=== PATIENT | female | born 1955 | race Caucasian/White ===

== ENCOUNTER → 2016-06-13 | Outpatient (CLI) | payer OTHER ==
[~2016-06-13] MED LIST: BNT10 PO; CLC/300 PO; DULO60CA44 PO; PRLSR20 PO; SPIR25TA PO
--- NOTE | 2016-06-13 16:27 | MAMMOGRAPHY REPORT ---
BILATERAL DIGITAL SCREENING MAMMOGRAM TOMOSYNTHESIS WITH CAD: 06/13/2016 CLINICAL HISTORY: Routine screening. Patient has no complaints. TECHNIQUE: Breast tomosynthesis in addition to standard 2D mammography was performed. Current study was also evaluated with a Computer Aided Detection (CAD) system. COMPARISON: Comparison is made to exams dated: 05/23/2015 mammogram, 05/17/2013 mammogram, 05/22/20 14 mammogram, 05/14/2012 mammogram, 05/13/2011 mammogram, and 05/09/2010 mammogram - [facility]. BREAST COMPOSITION: There are scattered areas of fibroglandular density in both breasts. FINDINGS: The previously seen bilateral silicone implants are no longer evident. There is a newly visualized small 3 mm cluster of calcifications in the right superior posterior breast overlying the pectoralis muscle, for which spot magnification views and right X CCL views are recommended for fur ther evaluation. Additionally, there is a partially visualized asymmetry seen within the left poste rior breast on the MLO view, which could represent residual silicone and/or postsurgical changes fro m implant removal, however, spot compression tomosynthesis views and possible breast ultrasound are recommended for further evaluation. The remainder of both breasts are stable compared to prior exams, without suspicious masses, calcifi cations, or areas of architectural distortion noted. Benign-appearing 2.3 cm mass in the left upper outer quadrant and smaller benign-appearing 6 mm mass at approximately 3:00 are stable compared to prior exams. IMPRESSION: ACR BI-RADS CATEGORY 0: INCOMPLETE EVALUATION: NEED ADDITIONAL IMAGING EVALUATION Right breast calcifications and left breast asymmetry, for which additional imaging evaluation is re commended. The patient will be called to schedule an appointment. Approximately 10% of breast cancers are not detected with mammography. A negative mammographic repor t should not delay biopsy if a clinically suggestive mass is present. Marley Ramon M.D. ah/:06/13/2016 15:44:00 Corporate Health Consultant: Makayla BARRETT)(M), [facility] letter sent: Addl Imaging 0 BI-RADS Code: ACR BI-RADS Category 0: Incomplete Evaluation: Need Additional Imaging Evaluation
== END | disposition home or self-care (01) ==
LOC: C.MAMM 09:44
PROVIDERS: ATTEND Obstetrics & Gynecology
DX: Z12.31 Encounter for screening mammogram for malignant neoplasm of breast (principal); R92.1 Mammographic calcification found on diagnostic imaging of breast; N64.89 Other specified disorders of breast

== ENCOUNTER → 2016-06-19 | Outpatient (CLI) | payer OTHER ==
--- NOTE | 2016-06-19 14:52 | MAMMOGRAPHY REPORT ---
BILATERAL DIGITAL DIAGNOSTIC MAMMOGRAM TOMOSYNTHESIS AND TARGETED LEFT ULTRASOUND: 06/19/2016 CLINICAL HISTORY: Callback from screening mammogram for right breast calcifications and left breast asymmetry. Interval removal of bilateral breast implants. TECHNIQUE: Breast tomosynthesis in addition to standard 2D mammography was performed. Right spot m agnification CC and ML views, right X CCL view, and spot compression left MLO 2-D and tomosynthesis images were obtained. COMPARISON: Comparison is made to exams dated: 06/13/2016 mammogram, 05/23/2015 mammogram, 3 mammogram, 06/11/2015 breast MRI, 05/22/2014 mammogram, and 05/14/2012 mammogram - [facility]. BREAST COMPOSITION: There are scattered areas of fibroglandular density in both breasts. FINDINGS: The previously described partially visualized asymmetry seen within the left posterior br east on the MLO view is less prominent on the spot compression views, and may represent postsurgical changes from implant removal and/or less likely residual silicone. A small amount of extra capsula r silicone was seen in this region on the April 2015 exam. Spot magnification views of the right breast demonstrate a small 4 mm cluster of punctate calcificat ions in the right superior posterior breast overlying the pectoralis muscle, seen on the ML view onl y and not seen on the cc view. This was not clearly seen on prior exams, although the calcification s could have been obscured by the previously seen implants which have been removed. The calcificati ons are probably benign, and recommend short interval follow-up in 6 months. The calcifications are not amenable to stereotactic biopsy due to the far posterior location. Targeted ultrasound was performed of the left breast at 3:00, 9:00, and subareolar region, in the re gion of the asymmetry seen on one view only. No suspicious masses or other suspicious sonographic a bnormalities are evident. No focal echogenic mass is seen to suggest residual silicone. Incidental ly noted in the left breast at 3:00, 3 cm from the nipple, is an oval anechoic benign simple cyst wh ich measures 4 x 6 mm. IMPRESSION: ACR-BI-RADS CATEGORY 3: PROBABLY BENIGN, TARGETED ULTRASOUND ACR-BI-RADS CATEGORY 3: DC OBABLY BENIGN 1. Small 4 mm cluster of punctate calcifications in the right superior posterior breast is probably benign. Recommend follow-up diagnostic mammograms of the right breast in 6 months to confirm federico brown. 2. Asymmetry seen within the left posterior breast is less prominent on the additional views, witho ut corresponding sonographic abnormality evident. The asymmetry is benign and likely represents pos tsurgical changes due to implant removal and/or less likely a small amount of residual silicone. The patient has been verbally notified of the results. Approximately 10% of breast cancers are not detected with mammography. A negative mammographic repor t should not delay biopsy if a clinically suggestive mass is present. Marley Ramon M.D. ah/:06/19/2016 10:18:12 Press Cleaner: Nelly Green, [facility] letter sent: Follow Up Recommended 3 BI-RADS Code: ACR-BI-RADS Category 3: Probably Benign Ultrasound BI-RADS: ACR-BI-RADS Category 3: P robably Benign
== END | disposition home or self-care (01) ==
LOC: C.MAMM 08:48
PROVIDERS: ATTEND Obstetrics & Gynecology
DX: R92.1 Mammographic calcification found on diagnostic imaging of breast (principal); N64.89 Other specified disorders of breast

== ENCOUNTER → 2016-12-17 | Outpatient (CLI) | payer OTHER ==
--- NOTE | 2016-12-17 12:45 | MAMMOGRAPHY REPORT ---
BILATERAL DIGITAL DIAGNOSTIC MAMMOGRAM TOMOSYNTHESIS WITH CAD: 12/17/2016 CLINICAL HISTORY: 61-year-old woman presents for follow-up in both breasts; for an asymmetry in the i nferior posterior left breast on the MLO view, and also a 4 mm cluster of microcalcifications in the superior posterior right breast, only seen on the MLO view. Patient has a history of prior breast au gmentation and subsequent implant removal. TECHNIQUE: Right CC, MLO, left MLO 2-D and tomosynthesis images, spot magnification right CC and ML v iews were obtained. Current study was also evaluated with a Computer Aided Detection (CAD) system. COMPARISON: Comparison is made to exams dated: 06/19/2016 ultrasound, 06/19/2016 mammogram, 06/13/2016 mammogram, 05/23/2015 mammogram, 05/22/2014 mammogram, and 05/17/2013 mammogram - [facility]. BREAST COMPOSITION: There are scattered areas of fibroglandular density in both breasts. FINDINGS: A 2.3 cm ovoid asymmetry in the superior middle one third of the left breast on the MLO vie w and a smaller, 4 mm nodular asymmetry in the inferior, middle one third of the left breast on the M LO view appear generally stable comparing to prior available mammograms, but likely decreased in size comparing to the most remote 2006 mammogram. The asymmetry in the inferior, far posterior left christiano st on the MLO view persists, but there is no definite evidence of a mass on the corresponding tomosyn thesis images. The appearance is very similar to the 06/13/2016 exam, and this could represent guillermina l overlapping tissue or possibly residual silicone. The right parenchymal pattern is similar to the prior mammogram. Again seen is a 4 mm cluster of pun ctate microcalcifications in the superior far posterior right breast, only seen on the spot magnifica tion ML view. These microcalcifications have not significantly increased in number compared to the p rior spot magnification views and are most likely benign. However, another short interval follow-up diagnostic mammogram including spot magnification views is recommended to ensure longer stability. N o other suspicious mass, architectural distortion or other cluster of microcalcifications are seen in the right breast. IMPRESSION: ACR-BI-RADS CATEGORY 3: PROBABLY BENIGN Stable bilateral mammograms including a benign appearing 4 mm cluster of punctate microcalcifications in the superior posterior right breast, and an asymmetry in the inferior posterior left breast. Ano ther six-month follow-up bilateral diagnostic mammogram including right spot magnification views and possible ultrasound is recommend to ensure longer stability. These results and recommendations were discussed with the patient at the time of the exam. Approximately 10% of breast cancers are not detected with mammography. A negative mammographic report should not delay biopsy if a clinically suggestive mass is present. Valencia Fuentes M.D. ay/:12/17/2016 11:38:03 Parts Washer: Ephraim BARRETT)(Jama), [facility] letter sent: Follow Up Recommended 3 BI-RADS Code: ACR-BI-RADS Category 3: Probably Benign
== END | disposition home or self-care (01) ==
LOC: C.MAMM 10:53
PROVIDERS: ATTEND Obstetrics & Gynecology
DX: R92.2 Inconclusive mammogram (principal); R92.0 Mammographic microcalcification found on diagnostic imaging of breast

== ENCOUNTER → 2017-01-19 | Outpatient (CLI) | payer OTHER ==
[2017-01-19 09:38] LABS: BASO % 0.8 %; BASO ABS # 0.04 K/uL (0-0.2); COMPLETE YES; EOS % 5.2 %; HEMATOCRIT 40.4 % (37-47); IG% 0.2 %; LYMPH % 46.8 %; LYMPH ABS # 2.41 K/uL (1.2-3.4); MEAN CORPUSCULAR HEMOGLOBIN 31.4 pg (25-34); MEAN CORPUSCULAR HGB CONC 33.4 g/dl (32-36); MEAN PLATELET VOLUME 11.1 fL (7.4-10.4); MONO % 7.8 %; NEUT % 39.2 %; PLATELET COUNT 250 K/uL (130-400); WHITE BLOOD COUNT 5.15 K/uL (4.8-10.8)
[2017-01-19 09:58] LABS: ALT/SGPT 20 U/L (12-78); BLOOD UREA NITROGEN 18 mg/dl (7-18); BUN/CREATININE RATIO 17.8 (10-20); CALCIUM 9.1 mg/dl (8.5-10.1); CARBON DIOXIDE 30 mmol/L (21-32); CHLORIDE 105 mmol/L (98-107); CHOLESTEROL 169 mg/dl (0-200); GLUCOSE 86 mg/dl (70-99); MAGNESIUM 2.2 mg/dl (1.8-2.4); POTASSIUM 4.2 mmol/L (3.5-5.1); SODIUM 141 mmol/L (136-145)
[2017-01-19 10:07] LABS: ALB/GLOB RATIO 1.1 (0.9-2); ALKALINE PHOSPHATASE 82 U/L (45-117); AST/SGOT 18 U/L (15-37); CHOLESTEROL/HDL RATIO 2.7; FERRITIN 16.6 ng/ml (8.0-388.0); HDL CHOLESTEROL 62 mg/dl; LDL CHOLESTEROL CALCULATED 94 mg/dl; TRIGLYCERIDES 67 mg/dl (0-150); VERY LOW DENSITY LIPOPROT CALC 13 mg/dl
== END | disposition home or self-care (01) ==
LOC: C.LAB1850 08:14
PROVIDERS: ATTEND Nurse Practitioner Family
DX: Z11.59 Encounter for screening for other viral diseases (principal); I10 Essential (primary) hypertension; D50.9 Iron deficiency anemia, unspecified; E78.5 Hyperlipidemia, unspecified

== ENCOUNTER → 2017-04-30 | Outpatient (CLI) | payer OTHER ==
[~2017-04-30] VITALS: Ht 174 cm; Wt 77.2 kg
[2017-04-30 13:28] VITALS: BP 130/83; PULSE 81; Ht 174 cm; Wt 77.2 kg
== END | disposition home or self-care (01) ==
LOC: C.NEUR 13:10
PROVIDERS: ATTEND Internal Medicine Pulmonary Disease
DX: G47.00 Insomnia, unspecified (principal); F32.9 Major depressive disorder, single episode, unspecified; K21.9 Gastro-esophageal reflux disease without esophagitis; G47.19 Other hypersomnia; D50.9 Iron deficiency anemia, unspecified

== ENCOUNTER → 2017-06-23 | Outpatient (CLI) | payer OTHER ==
--- NOTE | 2017-06-23 14:41 | MAMMOGRAPHY REPORT ---
BILATERAL DIGITAL DIAGNOSTIC MAMMOGRAM TOMOSYNTHESIS WITH CAD: 06/23/2017 CLINICAL HISTORY: Six-month follow-up of right breast calcifications. The patient reports no current complaints. TECHNIQUE: Breast tomosynthesis in addition to standard 2D mammography was performed. Current study was also evaluated with a Computer Aided Detection (CAD) system. Bilateral CC and MLO 2-D and tomosy nthesis images and spot magnification right ML views were obtained. COMPARISON: Comparison is made to exams dated: 12/17/2016 mammogram, 06/19/2016 mammogram, 06/13/2016 m ammogram, 05/23/2015 mammogram, 05/17/2013 mammogram, and 05/22/2014 mammogram - [facility]. BREAST COMPOSITION: There are scattered areas of fibroglandular density in both breasts. FINDINGS: The previously described small 2 mm cluster of punctate calcifications in the right superi or posterior breast, seen on the MLO and ML views only, is stable dating back to at least the May 2016 exam and is probably benign. The remainder of both breasts are stable compared to prior exams, without suspicious masses, calcifications, or areas of architectural distortion noted. 2.4 cm asymm etry within the left upper outer quadrant is stable compared to multiple prior exams. Left inferior posterior breast asymmetry is stable to less prominent compared to the May 2016 exam and is benig n and may represent normal fibroglandular tissue versus changes related to prior implant removal. IMPRESSION: ACR-BI-RADS CATEGORY 3: PROBABLY BENIGN Small 2 mm cluster of punctate calcifications in the right superior posterior breast is stable dating back to the May 2016 exam and is probably benign. Recommend bilateral diagnostic tomosynthesis mammograms in 12 months to confirm 2 years of stability of the right breast calcifications and for ro utine mammography of the left breast. The patient has been verbally notified of the results. Approximately 10% of breast cancers are not detected with mammography. A negative mammographic report should not delay biopsy if a clinically suggestive mass is present. Marley Ramon M.D. ah/:06/23/2017 10:07:47 Adult Crossing Guard: Nelly SHIN(Theodore)(M), [facility] letter sent: Follow Up Recommended 3 BI-RADS Code: ACR-BI-RADS Category 3: Probably Benign
== END | disposition home or self-care (01) ==
LOC: C.MAMM 09:36
PROVIDERS: ATTEND Obstetrics & Gynecology
DX: R92.1 Mammographic calcification found on diagnostic imaging of breast (principal)

== ENCOUNTER → 2017-08-04 | Day surgery (SDC) | payer OTHER ==
[2017-07-09 10:50] VITALS: Ht 172.7 cm; Wt 77.3 kg
[~2017-08-04] VITALS: Ht 172.7 cm; Wt 77.3 kg
[~2017-08-04] MED LIST changes: +500ML BSS 0.3ML EPI 1:1000PF IRRIG ONE; +ACETAMINOPHEN 325 MG TAB PO PRN; +AMVISC PLAIN 0.8ML SYRINGE INT OCU ONE; +AMVISC PLUS 0.8ML SYRINGE INT OCU ONE; +ATROPINE SULFATE 0.1 MG/ML 5ML SYR IV PRN; -BNT10 PO; +BSS FLUSH ONE; -CLC/300 PO; +CTP/1 PO; +DICY10CA55 PO; +EpHEDrine SULFATE INJ 50 MG/ML AMP IV PRN; +EpINEphrine INJ 1MG/ML AMP 1 MG/ML AMP ONE; +LACTATED RINGER'S 1000ML 500 ML IV SCH; +LIDOCAINE 3.5% OPH GEL PER APPLICATION CHARGE ONE; +LIDOCAINE HCL 1% MPF 2 ML VIAL ONE; +MIDAZOLAM HCL 1 MG/ML 2ML VIAL ONE; +MULT-1092 PO; +POVIDONE-IODINE OP SOLN 30 ML BTL ONE; +PROPARACAINE 0.5% OP SOLN PER DROP CHARGE OPR SCH; +TOBRAMYCIN/DEXAMETHASONE OPH OINT PER APPLN CHARGE ONE; +ZOLP10TA PO
[2017-08-04] MEDS: PHENYLEPHRINE HCL 2.5% OP SOLN PER DROP CHARGE OPR SCH ×2 (06:27→06:32)
[2017-08-04] MEDS: TROPICAMIDE 1% OP SOLN PER DROP CHARGE OPR SCH ×2 (06:28→06:33)
[2017-08-04] MEDS: CYCLOPENTOLATE HCL 1% OP SOLN PER DROP CHARGE OPR SCH ×2 (06:29→06:34)
[2017-08-04] MEDS: KETOROLAC 0.5% OP SOLN PER DROP CHARGE OPR SCH ×2 (06:30→06:35)
[2017-08-04] MEDS: GATIFLOXACIN OP SOLN PER DROP CHARGE OPR SCH ×2 (06:31→06:43)
--- NOTE | 2017-08-04 06:53 | History & Physical Bridge - SC ---
H&P Re-Evaluation Bridge Note: I have examined the patient, reviewed the History & Physical and in the interval since the performance of the History & Physical I have noted the following changes of clinical significance: No changes noted
--- NOTE | 2017-08-04 07:22 | [facility] Operative Report ---
Operative Report Date of Service Aug 04, 2017. Operative Report 1. PREOPERATIVE DIAGNOSIS: Cataract of the right eye. 2. POSTOPERATIVE DIAGNOSIS: Same. 3. PROCEDURE: Phacoemulsification with intraocular lens implantation of the right eye. SURGEON: Dr. Ravin Campos. ANESTHESIA: Topical Lidocaine gel, 1% Non- Preserved intracameral Lidocaine, and monitored intravenous sedation. INDICATIONS FOR THE PROCEDURE: The patient is a 61 - year-old female with a history of cataract of the right eye causing significant visual impairment. The details of the proposed procedure were explained to the patient who asked appropriate questions and following discussion of all risks, benefits and alternatives agreed to have the procedure done. Patient had corneal astigmatism and therefore elected to have a toric lens placed. 4. OPERATION AND FINDINGS: DESCRIPTION OF PROCEDURE: After informed consent was obtained, the patient was placed in an upright position and the cornea was marked at 88 degrees using the [employer] corneal marking tool. The patient was brought to the Operating Room at the [facility]. The patient was placed in a supine position and then the right eye was prepped and draped in the usual sterile fashion for intraocular surgery. A drop of topical Lidocaine gel was placed in the operative eye. A wire lid speculum was then placed in the fornices. A corneal paracentesis was then created temporally. The Non-Preserved Lidocaine was then instilled into the anterior chamber. The anterior chamber was then pressurized with viscoelastic. A 2.0 mm clear corneal incision was then created temporally. A cystotome was inserted into the anterior chamber and used to create a tear in the anterior lens capsule. This capsular tear was then used to create a small flap and the flap was dragged in a counterclockwise direction in order to create a continuous curvilinear capsulorrhexis. Hydrodissection was accomplished with balanced salt solution. Phacoemulsification of the lens nucleus was then performed in a standard [id number]-[id number]-iotnbfl technique. The phaco time was 13 seconds with an average power of 8 %. The remaining cortical material was removed using irrigation aspiration. The capsular bag was then filled with viscoelastic. A Attila [id number] +21.5 diopters lens was then loaded into the injector and injected into the capsular bag. The lens was aligned with the previously made corneal cali. The remaining viscoelastic was removed with the irrigation aspiration handpiece. The wound was hydrated and then checked and found to be watertight. The intraocular pressure was checked and found to be adequate. The wire lid speculum was removed and the patient's face was cleaned and dried. TobraDex ointment was placed in the inferior fornix. The patient was discharged to the Recovery Room having tolerated the procedure well. There were no complications. The patient will be seen tomorrow in the office for follow-up. I attest to the content of the Intraoperative Record and any orders documented therein. Any exceptions are noted below.
--- NOTE | 2017-08-04 07:23 | Discharge Instructions-SurgCtr ---
Discharge Instructions Date of Service Aug 04, 2017. Visit Reason for Visit: Cataract Right Eye Discharge Discharge Diagnosis / Problem: cataract Discharge Goals Goal(s): Improve function Activity Recommendations Activity Limitations: per Instructions/Follow-up section Anesthesia . Post Anesthesia Instructions: If you have had General Anesthesia or IV Sedation: * Do not drive today. * Resume driving when surgeon permits. * Do not make important decisions or sign legal documents today. * Call surgeon for: 1. Temperature elevations greater than 101 degrees F. 2. Uncontrollable pain. 3. Excessive bleeding. 4. Persistent nausea and vomiting. 5. Medication intolerance (nausea, vomiting or rash). * For nausea and vomiting use only clear liquids such as: tea, soda, bouillon until nausea subsides, then gradually increase diet as tolerated. * If you have any concerns or questions, call your surgeon's office. If physician is unavailable and it is an emergency, call 911 or go to the nearest emergency room. . Diet Recommendations Home Diet: resume previous diet Procedures Procedures Performed: Right Cataract Phacoemulsification With Intraocular Lens Implant; Toric Lens Pending Studies Studies pending at discharge: no Medical Emergencies . Who to Call and When: Medical Emergencies: If at any time you feel your situation is an emergency, please call 911 immediately. . Non-Emergent Contact Non-Emergency issues call your: Process Improvement Specialist . . "Provider Documentation" section prepared by Ravin Campos. .
[2017-08-04 07:24] VITALS: TEMP 36.6
--- NOTE | 2017-08-04 07:29 | Anesthesia Progress Nt - [facility] ---
Anesthesia Post Op Note Date & Time Aug 04, 2017 at 07:29 Vital Signs Pain Intensity: 0 Vital Signs Past 12 Hours Date Time Temp Pulse Resp B/P (MAP) Pulse Ox O2 Delivery O2 Flow Rate FiO2 08/04/17 07:24 36.6 74 16 132/82 (99) 94 Room Air 08/04/17 06:22 36.3 85 16 129/81 (97) 95 Room Air Notes Mental Status: alert / awake / arousable, participated in evaluation Pt Amnestic to Procedure: Yes Nausea / Vomiting: adequately controlled Pain: adequately controlled Airway Patency, RR, SpO2: stable & adequate BP & HR: stable & adequate Hydration State: stable & adequate Anesthetic Complications: no major complications apparent
[2017-08-04 07:47] VITALS: BP 143/82; PULSE 64; O2SAT 100
== END | disposition home or self-care (01) ==
LOC: X.SURG 06:07
PROVIDERS: ATTEND Ophthalmology
DX: H26.9 Unspecified cataract (principal); K21.9 Gastro-esophageal reflux disease without esophagitis; F32.9 Major depressive disorder, single episode, unspecified; E78.5 Hyperlipidemia, unspecified; D50.9 Iron deficiency anemia, unspecified; K58.9 Irritable bowel syndrome, unspecified; Z90.710 Acquired absence of both cervix and uterus; Z90.722 Acquired absence of ovaries, bilateral; Z88.0 Allergy status to penicillin; Z88.2 Allergy status to sulfonamides; Z82.49 Family history of ischemic heart disease and other diseases of the circulatory system; Z82.3 Family history of stroke

== ENCOUNTER → 2017-08-18 | Day surgery (SDC) | payer OTHER ==
[2017-08-11 08:11] VITALS: Ht 172.7 cm; Wt 77.3 kg
[~2017-08-18] VITALS: Ht 172.7 cm; Wt 77.3 kg
[~2017-08-18] MED LIST changes: -AMVISC PLAIN 0.8ML SYRINGE INT OCU ONE; +FENTANYL CITRATE INJ 50 MCG/1 ML 2 ML VIAL IV PRN; +OCUCOAT 1 ML SOLN IO ONE; +ONDANSETRON INJ 2 MG/ML 2 ML VIAL IV PRN; +PROPARACAINE 0.5% OP SOLN PER DROP CHARGE OPL SCH; -PROPARACAINE 0.5% OP SOLN PER DROP CHARGE OPR SCH
[2017-08-18] MEDS: PHENYLEPHRINE HCL 2.5% OP SOLN PER DROP CHARGE OPL SCH ×2 (07:30→07:35)
[2017-08-18] MEDS: TROPICAMIDE 1% OP SOLN PER DROP CHARGE OPL SCH ×2 (07:31→07:36)
[2017-08-18] MEDS: CYCLOPENTOLATE HCL 1% OP SOLN PER DROP CHARGE OPL SCH ×2 (07:32→07:37)
[2017-08-18] MEDS: KETOROLAC 0.5% OP SOLN PER DROP CHARGE OPL SCH ×2 (07:33→07:38)
[2017-08-18] MEDS: GATIFLOXACIN OP SOLN PER DROP CHARGE OPL SCH ×2 (07:34→07:44)
--- NOTE | 2017-08-18 08:46 | [facility] Operative Report ---
Operative Report Date of Service Aug 18, 2017. Operative Report 1. PREOPERATIVE DIAGNOSIS: Cataract of the left eye. 2. POSTOPERATIVE DIAGNOSIS: Same. 3. PROCEDURE: Phacoemulsification with intraocular lens implantation of the left eye. SURGEON: Dr. Ravin Campos. ANESTHESIA: Topical Lidocaine gel, 1% Non- Preserved intracameral Lidocaine, and monitored intravenous sedation. INDICATIONS FOR THE PROCEDURE: The patient is a 61 - year-old female with a history of cataract of the left eye causing significant visual impairment. The details of the proposed procedure were explained to the patient who asked appropriate questions and following discussion of all risks, benefits and alternatives agreed to have the procedure done. 4. OPERATION AND FINDINGS: DESCRIPTION OF PROCEDURE: After informed consent was obtained, the patient was brought to the Operating Room at the [facility]. The patient was placed in a supine position and then the left eye was prepped and draped in the usual sterile fashion for intraocular surgery. A drop of topical Lidocaine gel was placed in the operative eye. A wire lid speculum was then placed in the fornices. A corneal paracentesis was then created temporally. The Non-Preserved Lidocaine was then instilled into the anterior chamber. The anterior chamber was then pressurized with viscoelastic. A 2.0 mm clear corneal incision was then created temporally. A cystotome was inserted into the anterior chamber and used to create a tear in the anterior lens capsule. This capsular tear was then used to create a small flap and the flap was dragged in a counterclockwise direction in order to create a continuous curvilinear capsulorrhexis. Hydrodissection was accomplished with balanced salt solution. Phacoemulsification of the lens nucleus was then performed in a standard ltiwmi-yhv-matkxgy technique. The phaco time was 15 seconds with an average power of 11 %. The remaining cortical material was removed using irrigation aspiration. The capsular bag was then filled with viscoelastic. A Attila [id number] +22.0 diopters lens was then loaded into the injector and injected into the capsular bag. The remaining viscoelastic was removed with the irrigation aspiration handpiece. The wound was hydrated and then checked and found to be watertight. The intraocular pressure was checked and found to be adequate. The wire lid speculum was removed and the patient's face was cleaned and dried. TobraDex ointment was placed in the inferior fornix. The patient was discharged to the Recovery Room having tolerated the procedure well. There were no complications. The patient will be seen tomorrow in the office for follow-up. I attest to the content of the Intraoperative Record and any orders documented therein. Any exceptions are noted below.
--- NOTE | 2017-08-18 08:47 | Discharge Instructions-SurgCtr ---
Discharge Instructions Date of Service Aug 18, 2017. Visit Reason for Visit: Cataract Left Eye Discharge Discharge Diagnosis / Problem: cataract Discharge Goals Goal(s): Improve function Activity Recommendations Activity Limitations: per Instructions/Follow-up section Anesthesia . Post Anesthesia Instructions: If you have had General Anesthesia or IV Sedation: * Do not drive today. * Resume driving when surgeon permits. * Do not make important decisions or sign legal documents today. * Call surgeon for: 1. Temperature elevations greater than 101 degrees F. 2. Uncontrollable pain. 3. Excessive bleeding. 4. Persistent nausea and vomiting. 5. Medication intolerance (nausea, vomiting or rash). * For nausea and vomiting use only clear liquids such as: tea, soda, bouillon until nausea subsides, then gradually increase diet as tolerated. * If you have any concerns or questions, call your surgeon's office. If physician is unavailable and it is an emergency, call 911 or go to the nearest emergency room. . Diet Recommendations Home Diet: resume previous diet Procedures Procedures Performed: Left Eye Cataract Phacoemulsification With Intraocular Lens Implant Pending Studies Studies pending at discharge: no Medical Emergencies . Who to Call and When: Medical Emergencies: If at any time you feel your situation is an emergency, please call 911 immediately. . Non-Emergent Contact Non-Emergency issues call your: Strategic Sourcing Specialist . . "Provider Documentation" section prepared by Ravin Campos. .
[2017-08-18 08:49] VITALS: TEMP 36.7
--- NOTE | 2017-08-18 09:05 | Anesthesia Progress Nt - [facility] ---
Anesthesia Post Op Note Date & Time Aug 18, 2017 at 09:05 Vital Signs Pain Intensity: 0 Vital Signs Past 12 Hours Date Time Temp Pulse Resp B/P (MAP) Pulse Ox O2 Delivery O2 Flow Rate FiO2 08/18/17 08:49 36.7 67 16 124/79 (94) 98 Room Air 08/18/17 07:20 37 75 18 119/82 (94) 94 Room Air Notes Mental Status: alert / awake / arousable, participated in evaluation Pt Amnestic to Procedure: Yes Nausea / Vomiting: adequately controlled Pain: adequately controlled Airway Patency, RR, SpO2: stable & adequate BP & HR: stable & adequate Hydration State: stable & adequate Anesthetic Complications: no major complications apparent
[2017-08-18 09:12] VITALS: BP 128/77; PULSE 67; O2SAT 98
== END | disposition home or self-care (01) ==
LOC: X.SURG 06:54
PROVIDERS: ATTEND Ophthalmology
DX: H26.9 Unspecified cataract (principal); F32.9 Major depressive disorder, single episode, unspecified; E78.5 Hyperlipidemia, unspecified; K21.9 Gastro-esophageal reflux disease without esophagitis; I10 Essential (primary) hypertension; D50.9 Iron deficiency anemia, unspecified; Z79.899 Other long term (current) drug therapy; Z88.1 Allergy status to other antibiotic agents; Z88.8 Allergy status to other drugs, medicaments and biological substances; Z82.49 Family history of ischemic heart disease and other diseases of the circulatory system; Z82.3 Family history of stroke

== ENCOUNTER 2024-04-26 11:06 | Observation (INO) ==
[2024-04-26] MEDS: AMPICILLIN/SULBACTAM SOD 3,000 MG/100 ML BAG IV STA (11:47)
[2024-04-26 12:07] LABS: Basophils # (auto) 0.03 K/uL (0.00-0.20); Basophils % (auto) 0.4 %; Eosinophils # (auto) 0.08 K/uL (0.00-0.50); Eosinophils % (auto) 1.1 %; Hematocrit (blood only) 39.8 % (37.0-47.0); Hemoglobin 13.3 g/dl (12.0-16.0); Immature Granulocytes # (auto) 0.02 K/uL (0.01-0.20); Immature Granulocytes % (auto) 0.3 %; Lymphocytes # (auto) 1.82 K/uL (1.20-3.40); Lymphocytes % (auto) 24.4 %; Mean Corpuscular Hemoglobin 32.1 pg (25.0-34.0); Mean Corpuscular Hgb Conc 33.4 g/dL (32.0-36.0); Mean Corpuscular Volume 96.1 fL (80.0-100.0); Mean Platelet Volume 10.6 fL (9.4-12.4); Monocytes % (auto) 6.7 %; Neutrophils # (auto) 5.02 K/uL (1.40-6.50); Neutrophils % (auto) 67.1 %; Platelet Count 233 K/uL (130-400); RDW Coefficient of Variation 13.1 % (11.5-14.5); RDW Standard Deviation 46.2 fL (36.4-46.3); Red Blood Count 4.14 M/uL (4.20-5.40); White Blood Count 7.47 K/ul (4.8-10.8)
[2024-04-26 12:37] LABS: Alanine Aminotransferase 16 U/L (7-52); Albumin Globulin Ratio 1.6 (0.9-2); Albumin Level 4.5 gm/dl (3.4-5.0); Alkaline Phosphatase 82 U/L (34-104); BUN Creatinine Ratio 16.7 (10-20); Bilirubin,Total 0.6 mg/dl (0.2-1.0); Blood Urea Nitrogen 15 mg/dl (6-23); Calcium 9.7 mg/dl (8.6-10.3); Carbon Dioxide 31 mmol/L (21-32); Chloride 102 mmol/L (98-107); Creatinine Clr Calc Pharmacy 61.2 ml/min; Globulin 2.8 gm/dl (2.5-4.0); Glucose 85 mg/dl (70-99(Fasting)); Total Protein 7.3 gm/dl (6.0-8.3)
--- NOTE | 2024-04-26 13:00 | History & Physical Report ---
Date of Service April 26, 2024 Assessment & Plan (1) Cat bite of left hand with infection: (2) Depression: (3) Insomnia: (4) Hypertension: (5) GERD (gastroesophageal reflux disease): Plan Pt is a 68 yo female with a past medical history of IBS, insomnia, depression, GERD, and HTN who presents to the hospital on 04/26 for cat bite with cellulitis within 24 hours of bite. #Cat bite #Cellulitis - given rapid progression of cellulitis of L middle finger over 24 hours, r ecommend initial IV antibiotics - wound clean and dry and scabbed over at presentation - vitals stable, afebrile, no white count on admission - Tdap given - will continue unasyn, consider augmentin course at discharge #GERD - will continue home lansoprazole or formulary equivalent #Insomnia - continue trazodone qpm #Depression - continue home duloxetine #HTN - continue home spironolactone VTE prophylaxis; Cj score of 1; SCDs, encouraged mobility IVF: none History of Present Illness Chief Complaint: Cat bite Primary Care Provider: Dax Sahni, III, TIFFANY Pt is a 68 yo female with a past medical history of IBS, insomnia, depression, GERD, and HTN who presents to the hospital on 04/26 for cat bite with cellulitis within 24 hours of bite. Pt states that yesterday she was trying to grab her cat to take him to the vet when he turned on her and bit her L hand. She states that this happened to her about 15 years ago, same hand, and also required initial IV antibiotics. She states her middle finger where the bite occurred was red and a little swollen before bed last night but when she woke up this morning the redness and swelling was extended down past her knuckle and towards her wrist. Otherwise, feeling fine. No fever or chills. No further complaints. Cat is UTD on rabies vaccines. Unsure when last Tdap for herself was but likely over 10 years ago. Allergies Allergy/AdvReac Type Severity Reaction Status Date / Time erythromycin base Allergy Intermediate TONGUE Verified 04/26/24 12:51 SWELLING iodine Allergy Intermediate HIVES Verified 04/26/24 12:51 Macrolide Antibiotics Allergy Intermediate HIVES Verified 04/26/24 12:51 Sulfa (Sulfonamide Allergy Intermediate HIVES Verified 04/26/24 12:51 Antibiotics) clindamycin Allergy tounge Verified 04/26/24 12:51 [facility] Home Medications Medication Instructions Recorded Confirmed Type spironolactone 25 mg tablet 25 mg PO QAM #90 tabs 12/17/23 04/26/24 Rx duloxetine 60 mg capsule,delayed 60 mg PO QPM #90 caps 03/17/24 04/26/24 Rx release (Cymbalta) amoxicillin 875 mg-potassium 1 tab PO BID #20 tabs 04/26/24 Rx clavulanate 125 mg tablet dicyclomine 10 mg capsule 10 mg PO Q6H PRN Abdominal Pain 04/26/24 04/26/24 History lansoprazole 15 mg capsule,delayed 15 mg PO QAM 04/26/24 04/26/24 History release trazodone 50 mg tablet 50 mg PO HS 04/26/24 04/26/24 History Past Med/Surg History Problem List GERD (gastroesophageal reflux disease) Cat bite of left hand with infection (Acute) COVID-19 Constipation Irritable bowel syndrome (IBS) Excessive cerumen in ear canal Depression (Chronic) Prescription given to increase Cymbalta to 90 mg in the summer months if she feels the need. No additional changes at this time. Dyslipidemia (Chronic) Continue to work on lifestyle modification. Repeat Hearing loss (Chronic) Inconclusive mammogram (Chronic) Insomnia (Chronic) Stable. Continue trazodone. Continue to work on sleep hygiene. Iron deficiency anemia (Chronic) Check serum ferritin and CBC. No medication changes at this time. 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 Continue medications as prescribed. Low-sodium diet. Keep well hydrated. Work on being more physically active. Right ankle sprain Encounter for annual routine gynecological examination Neck Pain Left shoulder pain Sensorineural hearing loss (SNHL) of both ears Impacted cerumen of both ears Inequality of length of lower extremity Leg length series on 05/01/2021, RLE 86.2 cm, LLE 85.4 cm Medical History FH: cholecystectomy Hypertension Surgical History History of surgery gallbladder H/O: hysterectomy Total Abdominal Hysterectomy with Removal of Both Ovaries [place] teeth removed H/O colonoscopy H/O breast surgery Breast Surgery Enlargement Procedure, Breast Surgery Removal of Mammary Implant Bilateral Family History Father , age 84 Stroke Cardiac disorder Aunt Cardiac disorder Grandmother (Maternal) Cardiac disorder Grandfather (Paternal) Cardiac disorder Denies family history of Ovarian cancer Prostate cancer Myocardial infarction Breast cancer Colorectal cancer Social History Smoking Status: Never smoker Second Hand Exposure: No; Do You Dip or Chew Tobacco: No; Hx Alcohol Use: No Hx Substance Use: No Preferred Language: Marshallese Communication Ability: Effective Visual Impairment: No Limitations Hearing Ability: Hard of Hearing Mobile Home Installer Required: No marital status: Current Living Situation: Alone current occupational status: retired Feels Safe at Home: Yes Safety Concerns: Feels Safe At This Time Childhood Exposure to Second-Hand Smoke: No Diet: regular caffeine: Yes during the past year weight has: decreased > 10 lbs Dental Care, Regularly: Yes Physical Activity Frequency: Daily Seatbelt Use: always Sunscreen Use: Yes Assistive Devices: Glasses and Hospital Bed Review of Systems Review of Systems: Constitutional: denies fever, chills, HEENT: denies congestion, sore throat Cardio: denies chest pain, palpitations Resp: denies shortness of breath, cough GI: denies abdominal pain, nausea, vomiting, diarrhea Physical Exam Physical Exam: General: Alert and oriented, no acute distress, HEENT: Normocephalic, moist oral mucosa, Cardio: Regular rate and rhythm, no murmur, Resp: Lungs clear to auscultation b/l, no wheezes or rhonchi, Skin: Warm, pink, dry, Extremities: L hand with notable erythema and swelling at the L middle finger between the MTP to the PIP joint with a small scabbed wound in between this area, some redness and swelling extending from this area down hand to middle of dorsal hand, no tenderness to palpation, ROM intact, palmar surface of hand unremarkable, some extension just above the knuckle on adjacent fingers Results & Data Results & Data Vital Signs (Past 12 Hours) Vital Signs Temp Pulse Resp BP Pulse Ox O2 Del Method 04/26/24 11:10 36.8 C 70 20 121/78 98 Room Air Code Status & VTE Plan VTE Prophylaxis Plan VTE Prophylaxis will be ordered: No Reason for no VTE drug order: Treatment not indicated Supervising Physician Co-Signing Physician Notes I personally saw and examined the patient. I independently reviewed the labs, EKG, imaging, problem list, medication list, past medical history and family history. I verified all rosa points and agree with resident physician Dr Nicole Lee, DO with the following exceptions and/or additions: 68 year old female presents to the ER following a cat bite and rapidly expanding erythema and swelling O/E HS RRR, no murmurs, Chest CTAB, Abdo SNT, erythema and swelling surrounding finger injury on posterior of 3rd middle finger left hand with tracking just beyond wrist A/P Cat bite with surrounding cellulitis - IV Unasyn, elevate extremity, already improving when seen in evening, reassess for improvement from marked area Resident Activity Tracking Resident Involvement: Resident Care Provided Care Provided: Adult Hospital Medicine (1) Cat bite of left hand with infection Encounter type: initial encounter Qualified Code(s): S61.452A - Open bite of left hand, initial encounter; L08.9 - Local infection of the skin and subcutaneous tissue, unspecified; W55.01XA - Bitten by cat, initial encounter (2) Depression Active/Remission status: currently active Depression Type: major depressive disorder Major depression episode severity: mild Major depression recurrence: recurrent Qualified Code(s): F33.0 - Major depressive disorder, recurrent, mild (3) Insomnia Insomnia type: primary Qualified Code(s): F51.01 - Primary insomnia (4) Hypertension Hypertension type: essential hypertension Qualified Code(s): I10 - Essential (primary) hypertension
[2024-04-26] MEDS: DIPHTHER/TETAN/PERTUS Vaccine (Tdap, Adol/Adult) 0.5mL IM ONE (14:00)
[2024-04-26 15:20] LABS: Potassium 3.8 mmol/L (3.5-5.1)
[2024-04-26] MEDS ORDERED: DICYCLOMINE HCL 10 MG CAP PO PRN (15:43)
--- NOTE | 2024-04-26 16:09 | Emergency Department Note ---
ED Provider Note History of Present Illness Chief Complaint: Animal Bite Stated Complaint: CAT BITE ON LT MIDDLE FINGER, POSSIBLE INFECTION Time Seen by Provider: 04/26/24 11:17 68-year-old female who presents the emergency department for evaluation of an infected cat bite to her left middle finger. The patient reports that she was bitten by her health cat 24 hours prior to today's evaluation. Patient reports that she did initially clean the wound well and covered it with a bandage and antibiotic ointment. The patient denies any significant pain. Tetanus immunization is reportedly up-to-date. The patient is right-hand dominant. Home Medications Medication Instructions Recorded Confirmed Type spironolactone 25 mg tablet 25 mg PO QAM #90 tabs 12/17/23 04/26/24 Rx duloxetine 60 mg capsule,delayed 60 mg PO QPM #90 caps 03/17/24 04/26/24 Rx release (Cymbalta) amoxicillin 875 mg-potassium 1 tab PO BID #20 tabs 04/26/24 Rx clavulanate 125 mg tablet dicyclomine 10 mg capsule 10 mg PO Q6H PRN Abdominal Pain 04/26/24 04/26/24 History lansoprazole 15 mg capsule,delayed 15 mg PO QAM 04/26/24 04/26/24 History release trazodone 50 mg tablet 50 mg PO HS 04/26/24 04/26/24 History Allergies Allergy/AdvReac Type Severity Reaction Status Date / Time erythromycin base Allergy Intermediate TONGUE Verified 04/26/24 12:51 SWELLING iodine Allergy Intermediate HIVES Verified 04/26/24 12:51 Macrolide Antibiotics Allergy Intermediate HIVES Verified 04/26/24 12:51 Sulfa (Sulfonamide Allergy Intermediate HIVES Verified 04/26/24 12:51 Antibiotics) clindamycin Allergy tounge Verified 04/26/24 12:51 swells Past Med/Surg History Problem List GERD (gastroesophageal reflux disease) Cat bite of left hand with infection (Acute) COVID-19 Constipation Irritable bowel syndrome (IBS) Excessive cerumen in ear canal Depression (Chronic) Prescription given to increase Cymbalta to 90 mg in the summer months if she feels the need. No additional changes at this time. Dyslipidemia (Chronic) Continue to work on lifestyle modification. Repeat Hearing loss (Chronic) Inconclusive mammogram (Chronic) Insomnia (Chronic) Stable. Continue trazodone. Continue to work on sleep hygiene. Iron deficiency anemia (Chronic) Check serum ferritin and CBC. No medication changes at this time. 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 Continue medications as prescribed. Low-sodium diet. Keep well hydrated. Work on being more physically active. Right ankle sprain Encounter for annual routine gynecological examination Neck Pain Left shoulder pain Sensorineural hearing loss (SNHL) of both ears Impacted cerumen of both ears Inequality of length of lower extremity Leg length series on 05/01/2021, RLE 86.2 cm, LLE 85.4 cm Medical History FH: cholecystectomy Hypertension Surgical History History of surgery gallbladder H/O: hysterectomy Total Abdominal Hysterectomy with Removal of Both Ovaries [place] teeth removed H/O colonoscopy H/O breast surgery Breast Surgery Enlargement Procedure, Breast Surgery Removal of Mammary Implant Bilateral Family History Father , age 84 Stroke Cardiac disorder Aunt Cardiac disorder Grandmother (Maternal) Cardiac disorder Grandfather (Paternal) Cardiac disorder Denies family history of Ovarian cancer Prostate cancer Myocardial infarction Breast cancer Colorectal cancer Social History Smoking Status: Never smoker Second Hand Exposure: No; Do You Dip or Chew Tobacco: No; Hx Alcohol Use: No Hx Substance Use: No Preferred Language: Occitan Communication Ability: Effective Visual Impairment: No Limitations Hearing Ability: Hard of Hearing Director Nursing Service Required: No marital status: Current Living Situation: Alone current occupational status: retired Feels Safe at Home: Yes Safety Concerns: Feels Safe At This Time Childhood Exposure to Second-Hand Smoke: No Diet: regular caffeine: Yes during the past year weight has: decreased > 10 lbs Dental Care, Regularly: Yes Physical Activity Frequency: Daily Seatbelt Use: always Sunscreen Use: Yes Assistive Devices: Glasses and Hospital Bed Physical Exam Vital Signs Vital Signs - 24 hr 04/26/24 11:10 Temperature 36.8 C Temperature Source Temporal Artery Scan Pulse Rate 70 Respiratory Rate 20 Respiratory Effort / Characteristics Non-Labored Spontaneous Respiratory Depth Normal Respiratory Pattern Regular Blood Pressure 121/78 Blood Pressure Mean 92 Pulse Oximetry 98 Oxygen Delivery Method Room Air Sepsis Recent Fever Within 48 Hours No Sepsis New/Unexplained Change in Mental Status No Sepsis Action Taken by Nursing No Action Required CONSTITUTIONAL: Healthy and well nourished. Patient does not appear in any acute distress. HEENT: No scleral icterus or conjunctival injection. RESPIRATORY: Clear to auscultation bilaterally with no wheezing, crackles, rhonchi or stridor. CARDIOVASCULAR: Regular rate and rhythm with no murmurs, rubs or gallops. MUSCULOSKELETAL: Examination shows a small laceration to the proximal and dorsal proximal phalanx area of the middle finger. The patient has notable surrounding erythema about the dorsal base of the finger and MCP region. Proximal lymphangitic streaking is noted from this area across the dorsum of the wrist to the distal third of the forearm. Patient does not have any discomfort with active or passive flexion and extension of the middle finger. Cap refill of the fingertip is less than 2 seconds. No obvious induration or fluctuance noted over the wound site. INTEGUMENTARY: No rash or other significant dermatologic conditions noted. HEMATOLOGIC: No ecchymosis or petechiae. PSYCHIATRIC: Positive affect. NEUROLOGIC: Left hand and fingers are sensory intact. Course Course Patient history and physical exam were performed. Nurses notes were reviewed. Vital signs are reviewed, showing an elevated blood pressure. IV access was established, and labs were ordered, drawn and reviewed, showing no significant leukocytosis, electrolyte abnormalities or other concerning findings. The patient was administered Unasyn 3 g IV infusion. History, labs and physical exam findings were discussed with Dr. Busch, ED attending physician, who recommended admission for IV antibiotics. I also took photos of the finger, and sent these to Dr. Rivas, hand surgeon on-call, who also recommended nonsurgical management admission for IV antibiotics. The patient initially reported that she needed to go home as she does not have anyone that can take care of her pets at home. She also has groceries coming to her house, and her cousin is coming in from [place] tomorrow afternoon. At this point, I did further discuss the case again with Dr. Busch, as well as our ED pharmacist, regarding choice of antibiotics since she refuses to be admitted. While trying to determine what antibiotics could be administered for 24-hour coverage, as well as appropriate outpatient antibiotics, the patient advised her nurse that she was able to find someone to help with her situation at home, and agrees to be admitted. At this point, [facility] who evaluated the patient and agrees with admission. Please see their dictation for further treatment and final disposition. Administered Medications Ampicillin Sodium/Sulbactam Sodium (Unasyn) 3,000 mg in 100 mls @ 200 mls/hr IV Q6H CM Stop: 05/03/24 17:59 Last Infusion: 04/26/24 18:35 Dose: Infused Documented By: Admin: 04/26/24 18:05 Dose: 200 mls/hr Documented By: HELENA Discontinued Medications Diphtheria/Pertussis/Tetanus Vacc (Diphther/Tetan/Pertus Vaccine (Tdap, Adol/Adult) 0.5ml) 0.5 ml IM .ONCE ONE Stop: 04/26/24 13:46 Last Admin: 04/26/24 14:00 Dose: 0.5 ml Documented By: SHENA Ampicillin Sodium/Sulbactam Sodium (Unasyn) 3,000 mg in 100 mls @ 200 mls/hr IV NOW STA Stop: 04/26/24 11:58 Last Infusion: 04/26/24 12:20 Dose: Infused Documented By: Admin: 04/26/24 11:47 Dose: 200 mls/hr Documented By: DESMOND Medical Decision Making Medical Records Attestation: I reviewed the patient's medical records. Home Medications was personally reviewed by me Laboratory Data Attestation: I reviewed the patient's lab results. 04/26/24 11:54 04/26/24 14:42 Lab Results 04/26/24 Range/Units 11:54 WBC 7.47 (4.8-10.8) K/ul RBC 4.14 L (4.20-5.40) M/uL Hgb 13.3 (12.0-16.0) g/dl Hct 39.8 (37.0-47.0) % MCV 96.1 (80.0-100.0) fL MCH 32.1 (25.0-34.0) pg MCHC 33.4 (32.0-36.0) g/dL RDW Std Deviation 46.2 (36.4-46.3) fL RDW Coeff of Zafar 13.1 (11.5-14.5) % Plt Count 233 (130-400) K/uL MPV 10.6 (9.4-12.4) fL Immature Gran % (Auto) 0.3 % Neut % (Auto) 67.1 % Lymph % (Auto) 24.4 % Reeves % (Auto) 6.7 % Eos % (Auto) 1.1 % Baso % (Auto) 0.4 % Neut # (Auto) 5.02 (1.40-6.50) K/uL Lymph # (Auto) 1.82 (1.20-3.40) K/uL Reeves # (Auto) 0.50 (0.11-0.59) K/uL Eos # (Auto) 0.08 (0.00-0.50) K/uL Baso # (Auto) 0.03 (0.00-0.20) K/uL Immature Gran # (Auto) 0.02 (0.01-0.20) K/uL ESR 15 (0-30) mm/hr Sodium TNP Potassium TNP Chloride 102 (98-107) mmol/L Carbon Dioxide 31 (21-32) mmol/L Anion Gap TNP BUN 15 (6-23) mg/dl Creatinine 0.90 (0.6-1.2) mg/dl Est Cr Clr Drug Dosing 61.2 ml/min eGFR 70.07 BUN/Creatinine Ratio 16.7 (10-20) Glucose 85 (70-99(Fasting)) mg/dl Calcium 9.7 (8.6-10.3) mg/dl Total Bilirubin 0.6 (0.2-1.0) mg/dl AST TNP ALT 16 (7-52) U/L Alkaline Phosphatase 82 (34-104) U/L Total Protein 7.3 (6.0-8.3) gm/dl Albumin 4.5 (3.4-5.0) gm/dl Globulin 2.8 (2.5-4.0) gm/dl Albumin/Globulin Ratio 1.6 (0.9-2) MDM Narrative See ED Course section for further details of today's visit. The patient presents for evaluation of an infected hand bite to the right hand after being bitten 24 hours ago. Patient already has notable cellulitis on the dorsal and proximal middle finger, dorsal third MCP joint, along with proximal lymphangitic streaking from the hand onto the extensor wrist and distal third of the forearm. It is noted that the patient does not have any discomfort with passive or active flexion/extension of the finger, therefore I do not suspect flexor tenosynovitis. I did discuss the case with Dr. Rivas, hand surgeon on-call, who did not feel that surgical intervention was required, but did suggest admission for IV antibiotics. This was also recommended by my attending physician, however the patient initially indicated that she had to go home. While trying to determine appropriate antibiotic treatment with anticipation of return tomorrow for wound recheck, the patient reported that she was able to be admitted. Dr. Busch, ED attending physician, also helped to formulate plan of care and agrees with admission for IV antibiotics. Impression Cat bite of left hand with infection Discharge Plan Visit Data Chief Complaint: Animal Bite Stated Complaint: CAT BITE ON LT MIDDLE FINGER, POSSIBLE INFECTION ED Provider: Arcenio Busch ED Midlevel Provider: Ovidio Salinas Discharge Problem: Cat bite of left hand with infection Patient Disposition: Admitted As Inpatient Discharge Instructions Interventions: ED Discharge Assessment Last Done: 04/26/24 14:54 Addendum April 26, 2024 20:32 HPI: The patient is a 68-year-old woman presents with department for evaluation of an infected cat bite to her left middle finger which occurred 24 hours ago by her home cat. Patient reports having cleaned the wound well and applied antibiotic ointment and a clean dressing. Tetanus status is up-to-date. A/P: Exam demonstrates proximal lymphangitic streaking. Full range of motion of the hand including middle finger is intact without difficulty. WBC within normal limits without neutrophilia or left shift. Chemistry without metabolic acidosis. Treatment initiated with IV Unasyn. THOM Rita reviewed with orthopedic hand surgery. Appreciate consultation recommendations. Agrees with admission to medicine services for IV antibiotics. Unlikely to require surgical intervention. Patient was referred to the hospital service for further management. Further management per admitting team. I was consulted by the Advanced Practice Provider and was substantively involved in the patient's visit.This includes aspects of the HPI, MDM, diagnostic interpretations, and disposition/plan. I discussed the case with the THOM and agree with the findings and plan as documented in THOM [place]'s note. Discharge Problem: Cat bite of left hand with infection Qualifiers: Encounter type: initial encounter Qualified Code(s): S61.452A - Open bite of left hand, initial encounter
[2024-04-26] MEDS: AMPICILLIN/SULBACTAM SOD 3,000 MG/100 ML BAG IV SCH (18:05)
[2024-04-26] MEDS: traZODone HCL 50 MG TAB PO SCH (21:07)
[2024-04-26] MEDS: DULoxetine HCL 60 MG CAP PO SCH (21:07)
--- NOTE | 2024-04-27 07:58 | Billing Data ---
Date of Service April 26, 2024 Coding Level of Care Code 89377 INT INP/OBS CARE
[2024-04-27 08:06] LABS: Basophils # (auto) 0.03 K/uL (0.00-0.20); Basophils % (auto) 0.6 %; Eosinophils # (auto) 0.09 K/uL (0.00-0.50); Eosinophils % (auto) 1.7 %; Hematocrit (blood only) 38.1 % (37.0-47.0); Hemoglobin 12.9 g/dl (12.0-16.0); Immature Granulocytes # (auto) 0.01 K/uL (0.01-0.20); Immature Granulocytes % (auto) 0.2 %; Lymphocytes # (auto) 1.32 K/uL (1.20-3.40); Lymphocytes % (auto) 24.5 %; Mean Corpuscular Hemoglobin 32.2 pg (25.0-34.0); Mean Corpuscular Hgb Conc 33.9 g/dL (32.0-36.0); Mean Platelet Volume 10.3 fL (9.4-12.4); Monocytes # (auto) 0.45 K/uL (0.11-0.59); Monocytes % (auto) 8.4 %; Neutrophils # (auto) 3.48 K/uL (1.40-6.50); Neutrophils % (auto) 64.6 %; Platelet Count 225 K/uL (130-400); RDW Standard Deviation 45.3 fL (36.4-46.3); Red Blood Count 4.01 M/uL (4.20-5.40); White Blood Count 5.38 K/ul (4.8-10.8)
[2024-04-27 08:28] LABS: BUN Creatinine Ratio 17.4 (10-20); Calcium 9.2 mg/dl (8.6-10.3)
[2024-04-27] MEDS: PANTOprazole 40 MG TAB PO SCH (09:07)
[2024-04-27] MEDS: SPIRONOLACTONE 25 MG TAB PO SCH (09:07)
--- NOTE | 2024-04-27 09:44 | Hospitalist Progress Note ---
Date of Service April 27, 2024 Assessment & Plan (1) Cat bite of left hand with infection: Plan: Presented with increased swelling and redness of her left hand x 1 day after her cat bit her hand. Cat is UTD on rabies vaccine. - Given rapid progression of cellulitis of L middle finger over 24 hours, recommend initial IV antibiotics - wound clean and dry and scabbed over at presentation - vitals stable, afebrile, no white count on admission - Tdap booster given in ED - will continue unasyn, consider augmentin course at discharge Plan Chronic stable issues: GERD: Continue pantoprazole Insomnia: Continue trazodone Depression: Continue duloxetine Hypertension: Continue spironolactone VTE PPx: SCDs, encourage ambulation CODE STATUS: Full code Admission and Anticipated Discharge Date Admission Date: April 26, 2024 Subjective Patient seen and evaluated at bedside. She reports feeling well and improvement in her left hand cellulitis. She notes the swelling is decreased compared to yesterday. The "line of redness" that was beginning to extend up her forearm has resolved. She denies nausea, vomiting, abdominal pain, chest pain, shortness of breath, headache, or lightheadedness. We discussed 1 further day of IV antibiotics and anticipate discharge home tomorrow with oral antibiotics. No additional complaints or concerns at this time. Physical Exam Physical Exam: General: No acute distress, nondiaphoretic, well-developed, well-nourished. Skin: Left hand with erythema and swelling around metacarpals. Small scabbed around on left middle finger between MTP and PIP joint. Cap refill <3 seconds. Cardiac: Regular rate and rhythm without murmurs gallops or rubs. Pulm: Clear to auscultation bilaterally without wheezes, rales or rhonchi. No respiratory distress. 97% on room air. Abdominal: Soft, nontender, nondistended. Bowel sounds present. Neuro: A&O x3. No focal neurological deficits. Results & Data Results & Data Vital Signs (Past 12 Hours) Vital Signs Temp Pulse Resp BP Pulse Ox O2 Del Method 04/27/24 07:24 98.1 F 76 16 145/82 H 96 Room Air 04/27/24 00:43 Room Air 04/27/24 00:12 97.9 F 63 16 110/67 94 Room Air Laboratory Results Reviewed CBC Reviewed CMP PG Care Time/CCT Total # of Minutes Spent Total Time Spent with Patient: Total time spent is greater than 50% in coordination of care (as documented) at patient's floor/unit and/or counseling patient: Coding Level of Care Code 84834 SUB INP/OBS CARE 2/35MIN Diagnoses Cat bite of left hand with infection S61.452A; L08.9; W55.01XA Encounter type: initial encounter (1) Cat bite of left hand with infection Encounter type: initial encounter Qualified Code(s): S61.452A - Open bite of left hand, initial encounter; L08.9 - Local infection of the skin and subcutaneous tissue, unspecified; W55.01XA - Bitten by cat, initial encounter
[2024-04-27] MEDS: ACETAMINOPHEN 325 MG TAB PO PRN (14:50)
[2024-04-28 06:56] LABS: Hematocrit (blood only) 39.6 % (37.0-47.0); Hemoglobin 13.3 g/dl (12.0-16.0); Mean Corpuscular Hemoglobin 31.5 pg (25.0-34.0); Mean Corpuscular Hgb Conc 33.6 g/dL (32.0-36.0); Mean Corpuscular Volume 93.8 fL (80.0-100.0); Mean Platelet Volume 10.3 fL (9.4-12.4); Platelet Count 211 K/uL (130-400); RDW Standard Deviation 44.7 fL (36.4-46.3); Red Blood Count 4.22 M/uL (4.20-5.40); White Blood Count 3.63 K/ul (4.8-10.8)
[2024-04-28 07:25] VITALS: RESP 15; TEMP 98.2; O2SAT 94
--- NOTE | 2024-04-28 11:36 | Discharge Summary ---
Discharge Summary Date of Service April 28, 2024 Principal Dx & Hospital Course #1 = Principal Diagnosis (1) Cat bite of left hand with infection: Presented with increased swelling and redness of her left hand x 1 day after her cat bit her hand. Cat is UTD on rabies vaccine. - Given rapid progression of cellulitis of L middle finger over 24 hours, recommended initial IV antibiotics - Wound clean and dry and scabbed over at presentation - Vitals stable, afebrile, no white count - Tdap booster given in ED - Treated with Unasyn, discharged on Augmentin x 7 days for total of 10 day antibiotic course - Recommend follow-up with PCP in 1-2 weeks Plan Chronic stable issues: GERD: Continue pantoprazole Insomnia: Continue trazodone Depression: Continue duloxetine Hypertension: Continue spironolactone CODE STATUS: Full code Notes For Next Care Provider Presented with cellulitis infection of left hand [facility]. [facility] with Unasyn while inpatient and discharged on Augmentin x 7 days for total of 10-day course. Tdap booster given on admission. Medication Changes From Visit Augmentin x 7 days Admission HPI Per Admitting Provider Pt is a 68 yo female with a past medical history of IBS, insomnia, depression, GERD, and HTN who presents to the hospital on 04/26 for cat bite with cellulitis within 24 hours of bite. Pt states that yesterday she was trying to grab her cat to take him to the vet when he turned on her and bit her L hand. She states that this happened to her about 15 years ago, same hand, and also required initial IV antibiotics. She states her middle finger where the bite occurred was red and a little swollen before bed last night but when she woke up this morning the redness and swelling was extended down past her knuckle and towards her wrist. Otherwise, feeling fine. No fever or chills. No further complaints. Cat is UTD on rabies vaccines. Unsure when last Tdap for herself was but likely over 10 years ago. Admission Exam Per Admitting Provider General: Alert and oriented, no acute distress, HEENT: Normocephalic, moist oral mucosa, Cardio: Regular rate and rhythm, no murmur, Resp: Lungs clear to auscultation b/l, no wheezes or rhonchi, Skin: Warm, pink, dry, Extremities: L hand with notable erythema and swelling at the L middle finger between the MTP to the PIP joint with a small scabbed wound in between this area, some redness and swelling extending from this area down hand to middle of dorsal hand, no tenderness to palpation, ROM intact, palmar surface of hand unremarkable, some extension just above the knuckle on adjacent fingers Discharge Exam General: No acute distress, nondiaphoretic, well-developed, well-nourished. Skin: RESOLVED erythema and swelling around metacarpals of left hand. Small scabbed around on left middle finger between MTP and PIP joint with minimal erythema surrounding scab. Full ROM of left hand and fingers. Cap refill <3 seconds. Cardiac: Regular rate and rhythm without murmurs gallops or rubs. Pulm: Clear to auscultation bilaterally without wheezes, rales or rhonchi. No respiratory distress. 97% on room air. Abdominal: Soft, nontender, nondistended. Bowel sounds present. Neuro: A&O x3. No focal neurological deficits. Discharge Plan Discharge Items Patient Disposition: Home - Self-Care Reason For Visit: LEFT HAND CELLULITIS Discharge Diagnosis: Left hand cellulitis Activity: Resume your previous activity Non-emergency contact: Primary Care Provider Call non-emergency contact if: you have any medication questions and your symptoms worsen Follow-up/Referrals: Dax Sahni III, CRNP [Primary Care Provider] - (Follow-up in 1-2 weeks) Diet: Regular Addtl Attending Provider Instructions: Ke Ribeiro were admitted to the hospital with a cellulitis infection of your left hand. Cellulitis is an infection of the skin/soft tissues caused by bacteria. Bacteria can enter the body through broken skin; this can happen with a cut, scratch, or animal bite. You have been treated in the hospital with IV antibiotics, and will be discharged with oral antibiotics to continue taking at home. Upon discharge from the hospital: * Take Augmentin (oral antibiotic) twice daily x 7 days. Take your evening dose of this tonight. This prescription was already sent to your [facility] -- 10 days worth was already sent in, but YOU ONLY NEED TO TAKE 7 DAYS WORTH OF THIS COURSE since you had IV antibiotics while in the hospital. Take the antibiotic even if you feel better. It treats the infection and prevents it from returning. Not taking all of the medicine can make future infections harder to treat. * Continue your other home medications as prescribed. * Follow-up with your PCP in 1-2 weeks. Please return to the hospital if you experience any of the following: Fever of 100.5 F or higher, trouble or pain with moving the joints above or below the infected area, discharge or pus draining from the infected area, pain that gets worse in or around the infected area, redness that gets worse and around the infected area, shaking chills, worsened swelling of the infected area, persistent vomiting, lightheadedness, dizziness, passing out, shortness of breath, difficulty breathing, or chest pain. It was a pleasure taking care of you while you were in the hospital, Michelle Hines PA-C Pending Studies at Discharge: No Stand-Alone Forms: My [facility], Smoking Cessation Medications and DC Order Prescriptions: New amoxicillin-pot clavulanate 875-125 mg tablet 1 tab PO BID Qty: 20 0RF Continued spironolactone 25 mg tablet 25 mg PO QAM Qty: 90 3RF duloxetine [Cymbalta] 60 mg capsule,delayed release(DR/EC) 60 mg PO QPM Qty: 90 3RF lansoprazole [Prevacid] 15 mg Capsule,Delayed Release(Dr/Ec) 15 mg PO QAM trazodone 50 mg tablet 50 mg PO HS Rx Instructions: take 1 tablet by mouth at bedtime dicyclomine 10 mg capsule 10 mg PO Q6H PRN (Reason: Abdominal Pain) Rx Instructions: TAKE 1 CAPSULE BY MOUTH EVERY 6 HOURS IF NEEDED FOR ABDOMINAL PAIN Discharge Orders: Discharge Order (Routine); Ordered 04/28/24 Ordered By: Michelle Hines Admission Data Admit Date/Time: 04/26/24 12:44 Attending Provider: Gigi Mina Admit Provider: Mason Alcantar Primary Care Provider: Dax Sahni III Other Providers: Mason Alcantar Hospital Stay Data Consultations 04/26/24 12:31 ED Decision to Admit Stat Pending Results Patient Have Any Pending Studies at Discharge: No Discharge Instructions Given to Patient (Per Discharging Provider) Ke Ribeiro were admitted to the hospital with a cellulitis infection of your left hand. Cellulitis is an infection of the skin/soft tissues caused by bacteria. Bacteria can enter the body through broken skin; this can happen with a cut, sc ratch, or animal bite. You have been treated in the hospital with IV antibiotics, and will be discharged with oral antibiotics to continue taking at home. Upon discharge from the hospital: * Take Augmentin (oral antibiotic) twice daily x 7 days. Take your evening dose of this tonight. This prescription was already sent to your [facility] -- 10 days worth was already sent in, but YOU ONLY NEED TO TAKE 7 DAYS WORTH OF THIS COURSE since you had IV antibiotics while in the hospital. Take the antibiotic even if you feel better. It treats the infection and prevents it from returning. Not taking all of the medicine can make future infections harder to treat. * Continue your other home medications as prescribed. * Follow-up with your PCP in 1-2 weeks. Please return to the hospital if you experience any of the following: Fever of 100.5 F or higher, trouble or pain with moving the joints above or below the infected area, discharge or pus draining from the infected area, pain that gets worse in or around the infected area, redness that gets worse and around the infected area, shaking chills, worsened swelling of the infected area, persistent vomiting, lightheadedness, dizziness, passing out, shortness of breath, difficulty breathing, or chest pain. It was a pleasure taking care of you while you were in the hospital, Michelle Hines PA-C Total Time Total Time Spent Total Time Spent (In Minutes): Greater than 30 minutes spent completing this discharge process including direct patient care, medication reconciliation, documentation, review of labs and images, and coordination of care. Coding Level of Care Code 18499 INP/OBS DISCH >30 MIN Diagnoses Cat bite of left hand with infection S61.452A; L08.9; W55.01XA Encounter type: initial encounter
[2024-04-28 12:36] VITALS: BP 167/89; PULSE 64
== END 2024-04-28 13:21 | disposition home or self-care (01) ==
LOC: EDINP 11:06 → ED 11:06 → SUATTDRO 12:44 → 3W 14:54